=== PATIENT | female | born 1945 | race Caucasian/White ===

== ENCOUNTER 2016-09-06 07:03 | Day surgery (SDC) | payer OTHER, BC ==
[~2016-09-06] VITALS: Ht 170.2 cm; Wt 91.6 kg
[~2016-09-06 07:03] MED LIST: ADVAIR 250/501 DISK IH; ALLOPURINOL100 MG PO; ALPRAZOLAM0.5 MG PO; ASPIR 8181 M1 PO; ASPIRIN325 MG PO; ATORVASTATIN CA20 MG PO; CALCITRIOL0.25 MCG PO; CALCIUM 500 +1 EAC3 PO; CALTRATE 600 +1 EAC1 PO; CALTRATE 600600 MG PO; CARTIA XT120 MG PO; CORDARONE200 MG PO; CRESTOR10 MG PO; CYCLOBENZAPRINE10 MG PO; DILTZAC ER120 MG PO; FUROSEMIDE20 MG PO; HYDROCHLOROTH12.5 M3 PO; HYDROCODON-ACE1 EAC1 PO; HYDROCODON-ACE1 EAC8 PO; IRON325 MG PO; LEVOTHYROXINE50 MCG PO; LISINOPRIL10 MG PO; LISINOPRIL20 MG PO; LISINOPRIL40 MG PO; MELOXICAM15 MG PO; METOPROLOL TART50 MG PO; PHENERGAN-CODE120 ML PO; PLAVIX75 MG PO; POTASSIUM CHLO20 ME1 PO; PRAMIPEXOLE D0.25 MG PO; PREDNISONE20 MG PO; PRILOSEC OTC20 MG PO; PRILOSEC20.6 MG PO; PROAIR HFA8.5 GM IH; PROTONIX40 MG PO; RANEXA500 MG PO; SPIRIVA1 INHALATI IH; WARFARIN SODIU2.5 MG PO; WARFARIN SODIUM5 MG PO; ZESTRIL,PRINIVIL5 MG PO; ZITHROMAX Z-PA250 MG PO; ZOLPIDEM TARTRA10 MG PO
== END 2016-09-06 20:15 | disposition home or self-care (01) ==
LOC: CATH 07:03
DX: I25.10 Atherosclerotic heart disease of native coronary artery without angina pectoris (principal); R94.39 Abnormal result of other cardiovascular function study; E78.5 Hyperlipidemia, unspecified; I48.91 Unspecified atrial fibrillation; Z95.5 Presence of coronary angioplasty implant and graft; Z79.01 Long term (current) use of anticoagulants; I12.9 Hypertensive chronic kidney disease with stage 1 through stage 4 chronic kidney disease, or unspecified chronic kidney disease; N18.3 Chronic kidney disease, stage 3 (moderate); I25.2 Old myocardial infarction; E03.9 Hypothyroidism, unspecified; I27.2 Other secondary pulmonary hypertension; Z87.891 Personal history of nicotine dependence
CPT/HCPCS: 85347; C1769; C1887; J0360; J1644; J2250; J3010; J7050

== ENCOUNTER 2016-09-17 19:25 | Emergency (ER) | payer OTHER, BC ==
[~2016-09-17] VITALS: Ht 170.2 cm; Wt 92.3 kg
[2016-09-17 21:06] LABS: CHLORIDE 109 mEq/L (99-109); POTASSIUM 4.6 mEq/L (3.7-5.4); SODIUM 143 mEq/L (136-147)
[2016-09-17 21:08] LABS: GLUCOSE 112 mg/dL (70-99)
[2016-09-17 21:09] LABS: ANION GAP 13 MEQ/L (2-14)
[2016-09-17 21:12] LABS: GFR ESTIMATE (CALCULATED) 36 mL/min/
[2016-09-17 21:13] LABS: UREA NITROGEN (BUN) 27 mg/dL (9-23)
[2016-09-17 21:35] LABS: HEMATOCRIT 38.5 % (36.0-46.0); MCH 24.6 PG (29.0-34.0); MCV 79.5 FL (83-99); RED BLOOD COUNT 4.84 M/uL (3.80-5.20); WHITE BLOOD COUNT 4.7 K/uL (4.1-10.2)
[2016-09-17 21:36] LABS: MCHC 30.9 G/DL (30.0-36.0)
[2016-09-17 21:45] VITALS: BP 160/86
[2016-09-17 22:08] LABS: HEMATOLOGY COMMENT 1 SMEAR COMPATIBLE; MEAN PLAT.VOLUME 10.7 uM^3 (9.5-12.4); PLATELET COUNT 167 K/uL (156-360)
== END 2016-09-17 22:00 | disposition home or self-care (01) ==
LOC: EME → EDBD 19:25 → EME 22:00
PROVIDERS: Emergency Medicine
DX: R04.0 Epistaxis (principal); I48.91 Unspecified atrial fibrillation; E78.5 Hyperlipidemia, unspecified; Z79.82 Long term (current) use of aspirin; Z79.01 Long term (current) use of anticoagulants; Z87.891 Personal history of nicotine dependence; Z88.0 Allergy status to penicillin; Z88.8 Allergy status to other drugs, medicaments and biological substances
CPT/HCPCS: 80048; 85027; 99281; 99284

== ENCOUNTER 2017-04-23 10:07 | Inpatient (IN) | payer OTHER, BC ==
[~2017-04-23] VITALS: Ht 170.2 cm; Wt 88.3 kg
[2017-04-23 11:29] LABS: HEMATOCRIT 42.8 % (36.0-46.0); MCH 31.1 PG (29.0-34.0); MCHC 33.2 G/DL (30.0-36.0); MCV 93.9 FL (83-99); RBC DIS.WIDTH-SD 47.3 % (39-53); RED BLOOD COUNT 4.56 M/uL (3.80-5.20); WHITE BLOOD COUNT 5.4 K/uL (4.1-10.2)
[2017-04-23 11:40] LABS: CHLORIDE 103 mEq/L (99-109); POTASSIUM 4.7 mEq/L (3.7-5.4); SODIUM 136 mEq/L (136-147)
[2017-04-23 11:42] LABS: GLUCOSE 110 mg/dL (70-99)
[2017-04-23 11:43] LABS: ANION GAP 10 MEQ/L (2-14)
[2017-04-23 11:44] LABS: TOTAL BILIRUBIN 0.9 mg/dL (0.0-1.0)
[2017-04-23 11:45] LABS: ALKALINE PHOSPHATASE 132 IU/L (3-129)
[2017-04-23 11:46] LABS: GFR ESTIMATE (CALCULATED) 25 mL/min/
[2017-04-23 11:47] LABS: UREA NITROGEN (BUN) 28 mg/dL (9-23)
[2017-04-23 11:48] LABS: PTT 63.3 SEC (25-37)
[2017-04-23 11:49] LABS: LIPASE 17 U/L (1.0-51.0)
[2017-04-23 11:51] LABS: TROP-I INTERPRETATION NEGATIVE; TROPONIN-I 0.01 ng/mL (0.0-0.30)
[2017-04-23 11:53] LABS: INTER. NORMALIZED RATIO 8.4
[2017-04-23 14:11] LABS: PLATELET COUNT 154 K/uL (156-360)
[2017-04-23 16:55] VITALS: BP 187/84
[2017-04-23 19:06] LABS: TROP-I INTERPRETATION NEGATIVE; TROPONIN-I 0.02 ng/mL (0.0-0.30)
[2017-04-23 21:10] VITALS: BP 142/74
[2017-04-24 00:19] VITALS: BP 158/71
[2017-04-24 03:44] LABS: TROP-I INTERPRETATION NEGATIVE; TROPONIN-I 0.02 ng/mL (0.0-0.30)
[2017-04-24 03:47] LABS: CHLORIDE 110 mEq/L (99-109); POTASSIUM 3.9 mEq/L (3.7-5.4)
[2017-04-24 03:53] LABS: GLUCOSE 95 mg/dL (70-99)
[2017-04-24 03:54] LABS: ANION GAP 10 MEQ/L (2-14)
[2017-04-24 03:56] LABS: GFR ESTIMATE (CALCULATED) 30 mL/min/
[2017-04-24 03:57] LABS: UREA NITROGEN (BUN) 26 mg/dL (9-23)
[2017-04-24 04:01] LABS: SODIUM 138 mEq/L (136-147)
[2017-04-24 05:32] VITALS: BP 154/70
[2017-04-24 07:24] VITALS: BP 114/74
[2017-04-24 10:18] LABS: PROTHROMBIN TIME 84.7 SEC (10.2-12.9)
[2017-04-24 10:19] LABS: INTER. NORMALIZED RATIO 7.1
[2017-04-24 12:10] VITALS: BP 141/63
[2017-04-24 12:28] LABS: ADD MIUA? YES; BILIRUBIN NEGATIVE; BLOOD NEGATIVE; COLOR YELLOW ((YELLOW)); GLUCOSE (STRIP) NEGATIVE; KETONES NEGATIVE; LEUKOCYTES MODERATE; NITRITE NEGATIVE; PROTEIN (STRIP) NEGATIVE; SPECIFIC GRAVITY 1.014 (1.000-1.030); UROBILINOGEN 0.2 MG/DL (0.2-1.0)
[2017-04-24 12:43] LABS: BACTERIA 3+ /HPF; EPITHELIAL CELLS RARE /HPF; HYALINE CASTS 0-5 /LPF; MUCUS TRACE /LPF; RED BLOOD CELLS 0-5 /HPF (0-5)
[2017-04-24 16:00] VITALS: BP 145/70
[2017-04-24 19:50] VITALS: BP 157/70
[2017-04-25 00:32] VITALS: BP 157/69
[2017-04-25 05:01] VITALS: BP 158/70
[2017-04-25 05:18] LABS: CHLORIDE 112 mEq/L (99-109); POTASSIUM 3.9 mEq/L (3.7-5.4); SODIUM 142 mEq/L (136-147)
[2017-04-25 05:20] LABS: GLUCOSE 106 mg/dL (70-99); INTER. NORMALIZED RATIO 4.9; PROTHROMBIN TIME 58.1 SEC (10.2-12.9)
[2017-04-25 05:22] LABS: ANION GAP 10 MEQ/L (2-14)
[2017-04-25 05:24] LABS: ALKALINE PHOSPHATASE 95 IU/L (3-129); GFR ESTIMATE (CALCULATED) 40 mL/min/; TOTAL BILIRUBIN 0.6 mg/dL (0.0-1.0)
[2017-04-25 05:25] LABS: UREA NITROGEN (BUN) 21 mg/dL (9-23)
[2017-04-25 05:40] LABS: EOSINOPHIL COUNT 0.2 K/uL (0-0.3); HEMATOCRIT 36.5 % (36.0-46.0); IMMATURE GRANULOCYTE (%) 0.6 % (0.0-0.7); INSTRUMENT ABS NEUTROPHIL CT 3.8 K/uL; LYMPHOCYTE COUNT 0.5 K/uL (1.0-2.8); MCH 30.6 PG (29.0-34.0); MCHC 32.6 G/DL (30.0-36.0); MCV 93.8 FL (83-99); MEAN PLAT.VOLUME 12.6 uM^3 (9.5-12.4); MONOCYTE (%) 9.3 % (3-12); MONOCYTE COUNT 0.5 K/uL (0-0.8); NEUTROPHIL COUNT 3.8 K/uL (1.8-6.4); PLATELET COUNT 123 K/uL (156-360); RBC DIS.WIDTH-SD 48.7 % (39-53); RED BLOOD COUNT 3.89 M/uL (3.80-5.20); WHITE BLOOD COUNT 4.9 K/uL (4.1-10.2)
[2017-04-25 08:36] VITALS: BP 141/71
[2017-04-25 12:13] VITALS: BP 171/71
[2017-04-25] MEDS ORDERED: Vitamin B-12 SL (12:32)
[2017-04-25] MEDS ORDERED: LISINOPRIL20 MG PO (12:32)
== END 2017-04-25 14:56 | disposition home health service (06) | DRG 309 ==
LOC: EME 10:07 → EDOF 13:11 → 4EAST 13:11 → EDOF 13:11 → ENRESERV 13:12 → EDOF 13:20 → ENRESERV 13:24 → 4EAST 16:44
PROVIDERS: Hospitalist; Internal Medicine; Nurse Practitioner Family
DX: R00.1 Bradycardia, unspecified (principal); N17.9 Acute kidney failure, unspecified; J44.1 Chronic obstructive pulmonary disease with (acute) exacerbation; I13.0 Hypertensive heart and chronic kidney disease with heart failure and stage 1 through stage 4 chronic kidney disease, or unspecified chronic kidney disease; J98.11 Atelectasis; R79.1 Abnormal coagulation profile; T45.515A Adverse effect of anticoagulants, initial encounter; E86.0 Dehydration; I48.2 Chronic atrial fibrillation; I34.0 Nonrheumatic mitral (valve) insufficiency; G25.81 Restless legs syndrome; F41.9 Anxiety disorder, unspecified; E66.9 Obesity, unspecified; E78.5 Hyperlipidemia, unspecified; R82.71 Bacteriuria; E03.9 Hypothyroidism, unspecified; E53.8 Deficiency of other specified B group vitamins; I25.10 Atherosclerotic heart disease of native coronary artery without angina pectoris; K21.9 Gastro-esophageal reflux disease without esophagitis; M10.9 Gout, unspecified; N18.3 Chronic kidney disease, stage 3 (moderate); I50.9 Heart failure, unspecified; I25.2 Old myocardial infarction; Z88.0 Allergy status to penicillin; Z79.01 Long term (current) use of anticoagulants; Z95.5 Presence of coronary angioplasty implant and graft; Z87.891 Personal history of nicotine dependence; Z68.30 Body mass index [BMI] 30.0-30.9, adult
CPT/HCPCS: 71020; 80048; 80053; 81003; 82607; 83690; 84484; 85025; 85027; 85610; 85730; 87077; 87086; 87186; 87493; 87506; 93005; 94799; 99202; 99281; 99285; G0378; J2405; J7030